=== PATIENT | female | born 1970 | race African-American/Black ===

== ENCOUNTER 2016-11-28 07:38 | Emergency (ER) | payer SELFPAY ==
[~2016-11-28] VITALS: Ht 160 cm; Wt 92.0 kg
[~2016-11-28 07:38] MED LIST: CYCL1PAK; HYDR-3535 PO; IBUP800T23 PO; XANA0.5T PO
[2016-11-28 07:43] VITALS: BP 145/90; PULSE 96; RESP 20; TEMP 98.3; O2SAT 95
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
== END 2016-11-28 08:38 | disposition left against medical advice (07) ==
LOC: NEPB 07:38
DX: Z51.89 Encounter for other specified aftercare (principal); F31.9 Bipolar disorder, unspecified; F41.8 Other specified anxiety disorders
CPT/HCPCS: 99281

== ENCOUNTER 2017-08-07 16:19 | Emergency (ER) | payer BC ==
[~2017-08-07] VITALS: Ht 160 cm; Wt 93.0 kg
[2017-08-07 16:26] VITALS: BP 138/74; PULSE 94; RESP 16; TEMP 98.3; O2SAT 100
[2017-08-07 16:45] LABS: BLOOD, URINE MOD (NEG); GLUCOSE,URINE NEG (NEG); KETONE, URINE NEG (NEG); NITRITE,URINE NEG (NEG); PH, URINE 5.5 (5.0-8.5)
[2017-08-07] MEDS ORDERED: ALPR.5 PO (16:45)
[2017-08-07] MEDS ORDERED: htn med (16:45)
[2017-08-07] MEDS ORDERED: HYDR-2374 PO (16:45)
[2017-08-07] MEDS ORDERED: AMLO2.5T PO (16:45)
[2017-08-07 16:51] LABS: METHOD OF COLLECTION CLEAN CATCH; URINE COLOR YELLOW (YELLW/STRAW)
[2017-08-07 16:52] LABS: COMMENT (UR) CULT NOT INDICATED; CULTURE IF INDICATED CULT NOT INDICATED; RBC, URINE 0-3 /hpf (0-3); WBC, URINE 0-2 /hpf (0-5)
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
[2017-08-07] MEDS ORDERED: SODIUM CHLORIDE 0.9% FLUSH 10 ML FLUSH IV FLUSH PRN (17:15)
[2017-08-07 17:36] VITALS: O2SAT 98
[2017-08-07 17:53] LABS: AUTOMATED NEUTROPHIL # 4.2 TH/MM3 (1.8-7.7); BASOPHIL # 0.1 TH/MM3 (0-0.2); BASOPHIL % 0.7 % (0.0-2.0); EOSINOPHIL # 0.2 TH/MM3 (0-0.4); EOSINOPHIL % 2.6 % (0.0-4.0); HEMATOCRIT 37.6 % (35.0-46.0); HEMO FLAGS DIFF FINAL; LYMPHOCYTE # 2.3 TH/MM3 (1.0-4.8); MEAN CELL VOLUME 79.6 FL (80.0-100.0); MEAN CORPUSCULAR HGB CONC 32.6 % (32.0-36.0); NEUT % 57.7 % (16.0-70.0); PLATELET COUNT 278 TH/MM3 (150-450); RED BLOOD COUNT 4.72 MIL/MM3 (4.00-5.30); RED CELL DISTRIBUTION WIDTH 13.6 % (11.6-17.2); WHITE BLOOD COUNT 7.3 TH/MM3 (4.0-11.0)
[2017-08-07 17:56] LABS: CHLORIDE 105 MEQ/L (98-107); POTASSIUM 3.8 MEQ/L (3.5-5.1); SODIUM (NA) 138 MEQ/L (136-145)
[2017-08-07] MEDS ORDERED: IOHEXOL 350 MG/ML 10 ML VIAL (for RAD DIAG) IVCONTRAST ONE (17:56)
[2017-08-07 18:00] LABS: ANION GAP 6 MEQ/L (5-15); BICARBONATE 26.9 MEQ/L (21.0-32.0); BLOOD UREA NITROGEN 19 MG/DL (7-18)
[2017-08-07 18:03] LABS: ALT (GPT) 30 U/L (10-53); AST (GOT) 21 U/L (15-37); GLOMERULAR FILTRATION RATE 78 ML/MIN (>89)
[2017-08-07 18:04] LABS: TOTAL BILIRUBIN ADULT 0.2 MG/DL (0.2-1.0)
[2017-08-07 18:06] LABS: ALKALINE PHOSPHATASE 60 U/L (45-117)
--- NOTE | 2017-08-07 18:14 | RADRPT ---
EXAM DATE/TIME: 08/07/2017 17:50 [facility] COMPARISON: CT ABDOMEN & PELVIS W CONTRAST, December 05, 2009, 18:20. INDICATIONS : Right sided abdominal pain for three days. IV CONTRAST: 95 cc Omnipaque 350 (iohexol) IV ORAL CONTRAST: No oral contrast ingested. RADIATION DOSE: 21.01 CTDIvol (mGy) MEDICAL HISTORY : None SURGICAL HISTORY : section. ENCOUNTER: Initial ACUITY: 3 days PAIN SCALE: 5/10 LOCATION: Right abdomen TECHNIQUE: Volumetric scanning of the abdomen and pelvis was performed. Using automated exposure control and ad justment of the mA and/or kV according to patient size, radiation dose was kept as low as reasonably achievable to obtain optimal diagnostic quality images. DICOM format image data is available electro nically for review and comparison. FINDINGS: Lung bases are clear. Osseous structures demonstrate grade 1 anterolisthesis of L5 on S1 and mild deg enerative changes of the spine. No pleural or pericardial effusions are seen. A hiatal hernia. Liver demonstrates a small cyst in the posterior right lobe abutting the liver capsule measuring 1.2 cm. Ga llbladder, spleen, pancreas, adrenal glands, right kidney unremarkable. There is a cyst at the midpol e of the left kidney measuring 1.5 cm. Urinary bladder is unremarkable. Uterus unremarkable. Left ova ankit cyst suspected measuring 2.2 cm. There is a right ovarian cyst measuring 4.1 x 3.8 cm in transve rse dimension. No evidence of bowel obstruction. The appendix is normal. No free fluid. CONCLUSION: Bilateral ovarian cysts are noted measuring up to 4.1 cm on the right. Six-week followup ultrasound i s suggested of the pelvis. Left renal cyst and liver cyst. Small hiatal hernia. Esteban Mata MD on August 07, 2017 at 18:10 Board Certified Radiologist. This report was verified electronically.
[2017-08-07 18:32] VITALS: BP 133/70; PULSE 92; RESP 16; O2SAT 100
== END 2017-08-07 18:48 | disposition home or self-care (01) ==
LOC: PHED 16:19
DX: S39.011A Strain of muscle, fascia and tendon of abdomen, initial encounter (principal); R10.9 Unspecified abdominal pain; X50.9XXA Other and unspecified overexertion or strenuous movements or postures, initial encounter; Y93.F2 Activity, caregiving, lifting
CPT/HCPCS: 74177; 80053; 81001; 83605; 85025; 99285; Q9967

== ENCOUNTER 2018-01-15 23:58 | Emergency (ER) | payer BC ==
[~2018-01-15] VITALS: Ht 160 cm; Wt 90.8 kg
[~2018-01-15 23:58] MED LIST changes: +ALPR.5 PO; -CYCL1PAK; +HYDR-2374 PO; -HYDR-3535 PO; -IBUP800T23 PO; -XANA0.5T PO; +htn med
[2018-01-16 00:06] VITALS: BP 194/83; PULSE 96; RESP 18; TEMP 97; O2SAT 98
[2018-01-16] MEDS ORDERED: BACL10TA PO (00:11)
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
[2018-01-16] MEDS ORDERED: AMOX875T PO (01:33)
[2018-01-16] MEDS ORDERED: IBUP-232 PO (01:38)
[2018-01-16 01:43] VITALS: BP 174/80
[2018-01-16] MEDS ORDERED: IBUPROFEN 800 MG TAB PO ONE (01:45)
[2018-01-16] MEDS ORDERED: AMOXICILLIN 875 MG TAB PO ONE (01:45)
== END 2018-01-16 01:53 | disposition home or self-care (01) ==
LOC: PHED 23:58
DX: K04.7 Periapical abscess without sinus (principal); F31.9 Bipolar disorder, unspecified; F41.9 Anxiety disorder, unspecified; I10 Essential (primary) hypertension; F14.10 Cocaine abuse, uncomplicated; F12.10 Cannabis abuse, uncomplicated; Z88.0 Allergy status to penicillin; Z72.0 Tobacco use; Z88.5 Allergy status to narcotic agent
CPT/HCPCS: 99283